=== PATIENT | female | born 1935 | race African-American/Black ===

== ENCOUNTER 2016-08-27 08:39 | Emergency (ER) | payer MEDICARE, OTHER ==
[~2016-08-27] VITALS: Ht 157.5 cm; Wt 54.4 kg
[2016-08-27] MEDS ORDERED: Vancomycin 1 GM in NS 275 ML IV ONE (08:45)
[2016-08-27] MEDS ORDERED: Cefepime HCl 1 GM in NS 55 ML IV SCH (08:45)
[2016-08-27] MEDS ORDERED: NS 1000ml 1,600 ML IVLG ONE (08:45)
[2016-08-27] MEDS ORDERED: MULTIVITAMINS1 EAC8 GT (08:48)
[2016-08-27] MEDS ORDERED: TRAMADOL HCL50 MG GT ×2 (08:48→08:53)
[2016-08-27] MEDS ORDERED: METFORMIN HCL500 M1 ORAL (08:48)
[2016-08-27] MEDS ORDERED: PANTOPRAZOLE SO40 MG GT (08:50)
[2016-08-27] MEDS ORDERED: FERROUS SU220 MG/53 GT (08:50)
[2016-08-27] MEDS ORDERED: VITAMIN C500 M1 GT (08:50)
[2016-08-27] MEDS ORDERED: NITROSTAT0.4 M2 SL (08:53)
[2016-08-27] MEDS ORDERED: ATORVASTATIN CA20 MG GT (08:53)
[2016-08-27] MEDS ORDERED: ALBUTEROL2.5 MG/3 M INH (08:53)
[2016-08-27] MEDS ORDERED: TYLENOL650 MG/20. ORAL (08:54)
[2016-08-27] MEDS ORDERED: ACETAMINOP160 MG/5 M ORAL (08:54)
[2016-08-27] MEDS ORDERED: FLEET ENEMA133 ML RECTAL (08:54)
[2016-08-27] MEDS ORDERED: Cefepime 1gm vial ONE ×2 (09:06→09:56)
[2016-08-27] MEDS ORDERED: NS 55 ML IV ONE (09:06)
--- NOTE | 2016-08-27 09:10 | Emergency Room Report ---
History of Present Illness General Chief Complaint: Dyspnea/Respdistress Source: EMS Present Illness HPI The patient got the EMS from a custodial facility. She started having shortness of breath earlier today. She does not have a history of congestive heart failure or COPD. Paramedics felt it lungs were clear. EKG showed sinus tachycardia in the field. The patient has an indwelling Diaz. She's had a prior stroke and is unable to answer questions. Patient post stroke and unable to give history. Allergies: Coded Allergies: No Known Allergies (Unverified , 08/27/16) Patient History Limited by: medical condition Past Medical History: see triage record Social History Narrative SNF Reviewed Nursing Documentation: PMH: Agreed, PSxH: Agreed Nursing Documentation-PMH Past Medical History: No History, Except For Hx Hypertension: Yes Hx Diabetes: Yes Hx Gastrointestinal Problems: Yes - GERD, Upper GI bleeding, UTI Hx Cerebrovascular Accident: Yes - affected right side Review of Systems All Other Systems: limited Physical Exam Vital Signs Date Time Temp Pulse Resp B/P Pulse Ox O2 Delivery O2 Flow Rate FiO2 08/27/16 08:41 97.9 133 22 138/78 99 Non-Rebreather 15.0 Sp02 EP Interpretation: reviewed, normal General Appearance: no apparent distress, alert - eyes open and tracking - possible R hemianopsia, Chronically Ill Head: normocephalic Eyes: bilateral eye PERRL, bilateral eye normal inspection ENT: moist mucus membranes Neck: supple Respiratory: lungs clear, normal breath sounds Cardiovascular #1: tachycardia Cardiovascular #2: 2+ radial (R) Gastrointestinal: normal inspection, normal bowel sounds, non tender, no mass, non-distended Genitourinary: other - diaz with turbid urine Musculoskeletal: back normal, other - R hemiparesis with contracture Neurologic: alert, sensory intact, aphasia - but nods head randomly , motor weakness - R hemiparesis Psychiatric: mood/affect normal Skin: normal inspection, warm/dry Medical Decision Making Diagnostic Impression: Primary Impression: Sepsis urinary source Additional Impressions: Tachycardia Post stroke ER Course The patient presents with dyspnea and tachycardia. In addition to that she has turbid urine. Her lungs are clear. Differential is fairly broad including acute myocardial infarction, pneumonia, arrhythmia, sepsis. Evaluation will be with labs, EKG, chest x-ray. As the urine is turbid and patient tachycardic sepsis is highly suspect. The patient was given a 30 ml/kilogram bolus. Also blood cultures will be obtained and lactate. The patient will be started on antibiotics. Labs significant for leukocytosis. Mild renal sufficiency. She also has too numerous to count white cells in the urine. Troponin normal. The patient is still tachycardic but somewhat better after fluid bolus. In addition to that antibiotics have been started. Lactate is normal. Chest x- ray is clear. BNP is slightly elevated. Rhythm is ST. The patient is felt to be stable for transfer to [facility]. She was present to Dr. Hampton who accepts the patient. Laboratory Tests Test 08/27/16 08:45 White Blood Count 28.1 K/UL (4.8-10.8) *H Red Blood Count 5.19 M/UL (4.20-5.40) Hemoglobin 13.4 G/DL (12.0-16.0) Hematocrit 42.3 % (37.0-47.0) Mean Corpuscular Volume 82 FL (80-99) Mean Corpuscular Hemoglobin 25.8 PG (27.0-31.0) L Mean Corpuscular Hemoglobin Concent 31.6 G/DL (32.0-36.0) L Red Cell Distribution Width 15.0 % (11.6-14.8) H Platelet Count 311 K/UL (150-450) Mean Platelet Volume 8.3 FL (6.5-10.1) Neutrophils (%) (Auto) % (45.0-75.0) Lymphocytes (%) (Auto) % (20.0-45.0) Monocytes (%) (Auto) % (1.0-10.0) Eosinophils (%) (Auto) % (0.0-3.0) Basophils (%) (Auto) % (0.0-2.0) Neutrophils % (Manual) Pending Lymphocytes % (Manual) Pending Platelet Estimate Pending Platelet Morphology Pending Prothrombin Time 11.7 SEC (9.30-11.50) H Prothrombin Time INR 1.1 (0.9-1.1) PTT 25 SEC (23-33) Urine Color Pale yellow Urine Appearance Turbid Urine pH 8 (4.5-8.0) Urine Specific [place] 1.010 (1.005-1.035) Urine Protein 3+ (NEGATIVE) H Urine Glucose (UA) Negative (NEGATIVE) Urine Ketones Negative (NEGATIVE) Urine Occult Blood 5+ (NEGATIVE) H Urine Nitrite Negative (NEGATIVE) Urine Bilirubin Negative (NEGATIVE) Urine Urobilinogen Normal MG/DL (0.0-1.0) Urine Leukocyte Esterase 3+ (NEGATIVE) H Urine RBC 5-10 /HPF (0 - 2) H Urine WBC Tntc /HPF (0 - 2) H Urine Squamous Epithelial Cells Few /LPF (NONE/OCC) Urine Bacteria Few /HPF (NONE) Sodium Level 152 mEQ/L (135-145) H Potassium Level 4.1 mEQ/L (3.4-4.9) Chloride Level 109 mEQ/L (98-107) H Carbon Dioxide Level 26 mEQ/L (20-30) Anion Gap 17 (5-15) H Blood Urea Nitrogen 64 mg/dL (7-23) H Creatinine 1.8 mg/dL (0.5-0.9) H Estimate Glomerular Filtration Rate mL/min (>60) Glucose Level 200 mg/dL (74-106) H Lactic Acid Level 1.00 mmol/L (0.66-2.22) Calcium Level 10.1 mg/dL (8.6-10.2) Total Bilirubin 0.5 mg/dL (0.0-1.2) Aspartate Amino Transferase (AST) 11 U/L (5-40) Alanine Aminotransferase (ALT) 11 U/L (3-33) Alkaline Phosphatase 109 U/L (35-104) H Total Creatine Kinase 27 U/L (26-140) Troponin I < 0.30 ng/mL (<=0.30) Pro-B-Type Natriuretic Peptide 1566 pg/mL (0-450) H Total Protein 8.3 g/dL (6.6-8.7) Albumin 3.8 g/dL (3.5-5.2) Globulin 4.5 g/dL Albumin/Globulin Ratio 0.8 (1.0-2.7) L EKG Diagnostic Results Rate: tachycardiac ST Segments: no acute changes Rhythm Strip Diag. Results EP Interpretation: yes Rhythm: no PVC's, no ectopy, other - sinus tachycardia Chest X-Ray Diagnostic Results EP Interpretation: Yes Findings: no consolidation, no effusion, no pneumothorax, no acute cardiopulmonary disease Number of Views: 1 Last Vital Signs Date Time Temp Pulse Resp B/P Pulse Ox O2 Delivery O2 Flow Rate FiO2 08/27/16 11:45 99.9 115 23 146/78 100 Nasal Cannula 2.0 Status: improved Disposition: XFER SHT-TRM HOSP Condition: Serious - but stable for transfer Da Mcintosh M.D. Aug 27, 2016 09:10
[2016-08-27 09:20] LABS: APPEARANCE,URINE TURBID; KETONES,URINE NEGATIVE (NEGATIVE); LEUKOCYTE ESTERASE ,URINE 3+ (NEGATIVE); MEAN CORPUSCULAR HEMOGLOBIN 25.8 PG (27.0-31.0); MEAN CORPUSCULAR HGB CONC 31.6 G/DL (32.0-36.0); MEAN CORPUSCULAR VOLUME 82 FL (80-99); MEAN PLATELET VOLUME 8.3 FL (6.5-10.1); NITRITE,URINE NEGATIVE (NEGATIVE); PH,URINE 8 (4.5-8.0); PLATELET COUNT 311 K/UL (150-450); PROTEIN,URINE 3+ (NEGATIVE); RED BLOOD COUNT 5.19 M/UL (4.20-5.40); UROBILINOGEN,URINE NORMAL MG/DL (0.0-1.0)
[2016-08-27 09:21] LABS: WHITE BLOOD COUNT 28.1 K/UL (4.8-10.8)
[2016-08-27 09:26] LABS: INR 1.1 (0.9-1.1); PROTHROMBIN TIME 11.7 SEC (9.30-11.50)
[2016-08-27 09:29] LABS: ALANINE AMINOTRANSFERASE 11 U/L (3-33); ALBUMIN/GLOBULIN RATIO 0.8 (1.0-2.7); ANION GAP 17 (5-15); ASPARTATE AMINO TRANSFERASE 11 U/L (5-40); CALCIUM 10.1 mg/dL (8.6-10.2); CARBON DIOXIDE 26 mEQ/L (20-30); CHLORIDE 109 mEQ/L (98-107); CREATININE 1.8 mg/dL (0.5-0.9); HEMOLYSIS 1; POTASSIUM 4.1 mEQ/L (3.4-4.9); SODIUM 152 mEQ/L (135-145); TOTAL PROTEIN 8.3 g/dL (6.6-8.7); TROPONIN I < 0.30 ng/mL (<=0.30)
[2016-08-27 09:31] VITALS: BP 133/76
[2016-08-27 09:52] LABS: WBC,URINE TNTC /HPF (0 - 2)
[2016-08-27 09:53] LABS: BACTERIA,URINE FEW /HPF; SQUAMOUS EPITHELIAL CELL,UR FEW /LPF (NONE/OCC)
[2016-08-27 10:06] VITALS: BP 141/71
[2016-08-27] MEDS ORDERED: NS 275 ML ONE (10:13)
[2016-08-27] MEDS ORDERED: Vancomycin 1gm inj IVPB ONE (10:13)
--- NOTE | 2016-08-27 10:21 | Diagnostic Imaging Report ---
Indications: Chest pain Technique: Portable AP chest Findings: Comparison: None Inspiratory effort is suboptimal. Visualized portions of lungs and pleura clear. Heart size and pulmonary vasculature within normal limits. Thoracic aorta mildly calcified and elongated. Suggestion of calcified nodule in aortopulmonary window region. Bones mildly demineralized. IMPRESSION: No evidence of acute cardiopulmonary disease, limited as described. Basal abnormalities may be missed. Upright PA and lateral chest radiographs with better inspiratory effort and optimal technique recommended for more complete evaluation. 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
[2016-08-27 10:24] VITALS: BP 136/68
[2016-08-27 10:27] LABS: ANISOCYTOSIS 1+; BAND NEUTROPHILS % (MANUAL) 0 % (0-8); BASOPHILS % (MANUAL) 0 % (0-2); EOSINOPHILS % (MANUAL) 0 % (0-3); LYMPHOCYTES % (MANUAL) 5 % (20-45); NEUTROPHILS % (MANUAL) 89 % (45-75); PLATELET ESTIMATE ADEQUATE; PLATELET MORPHOLOGY NORMAL; TOTAL CELLS COUNTED 100
[2016-08-27 11:42] VITALS: BP 146/78
[2016-08-27 11:45] VITALS: BP 146/78
[2016-08-28 12:32] LABS: OTHERS PATHOLOGIST COMMENT
--- NOTE | 2016-09-01 20:31 | Cardiology Report ---
APPROVED REPORT EKG Measurement Heart [id number] Sinus tachycardia Otherwise normal ECG
== END 2016-08-27 11:45 | disposition short-term general hospital (02) ==
LOC: EDBD 08:39 → EMR 09:08
DX: A41.89 Other specified sepsis (principal); R00.0 Tachycardia, unspecified; Z86.73 Personal history of transient ischemic attack (TIA), and cerebral infarction without residual deficits; I10 Essential (primary) hypertension; E11.9 Type 2 diabetes mellitus without complications; K21.9 Gastro-esophageal reflux disease without esophagitis
CPT/HCPCS: 36415; 71010; 80053; 81003; 82550; 83605; 83880; 84484; 85007; 85025; 85610; 85730; 87040; 87081; 87086; 87181; 93005; 96374; 96375; 99285; J0692; J3370; J7050